=== PATIENT | female | born 1950 ===

== ENCOUNTER 2023-02-24 07:53 | Emergency (ER) | payer OTHER, SELFPAY ==
--- NOTE | ~2023-02-24 | CT_ITS ---
EXAMINATION: CT HEAD WITHOUT CONTRAST CLINICAL INFORMATION: New onset vertigo. COMPARISON: None available. TECHNIQUE: Contiguous axial imaging was performed from the skull base to vertex without intravenous administration of contrast. Coronal and sagittal reformatted images were obtained. This CT examination was performed using dose optimization techniques as appropriate, variously including the following: *Automated exposure control *Adjustment of mA and/or kV according to patient size (this includes techniques or standardized protocols for targeted exams where dose is matched to indication/reason for exam; i.e. extremities or head) *Use of iterative reconstruction technique DLP: 574 mGy-cm FINDINGS: The cortical sulci are normal. The lateral ventricles are symmetrical. The third and fourth ventricles are in their normal midline position. The basilar and prepontine cisterns are unremarkable. There is no acute intra or extracerebral abnormality. There is no mass effect or midline shift. Sections through the bony calvarium are unremarkable. The paranasal sinuses show mild to moderate mucosal thickening most pronounced in the bilateral ethmoid and right sphenoid sinuses. The bony orbits and orbital contents are unremarkable. CT/CT head/brain wo IV con IMPRESSION: 1. No acute intracranial pathology. 2. Mild to moderate paranasal sinus inflammatory changes.
--- NOTE | 2023-02-24 08:00 | ED.DIZZY ---
HPI - Dizziness General Chief Complaint: Dizziness Stated Complaint: DIZZY NAUSEA VOMITING Time Seen by Provider: 02/24/23 07:59 Source: patient and EMS Mode of arrival: EMS Limitations: no limitations History of Present Illness HPI Narrative: 72 year old female wit history of vertigo presenting today via EMS with dizziness, N/V upon waking up this morning. Patient states she woke up to use the restroom this morning and was able to fall back asleep, however upon turning onto her right side she suddenly became dizzy- describes it as a room spinning sensation. Related Data Previous Rx's Medication Instructions Recorded albuterol sulfate 90 mcg/actuation 2 inh PO Q4H PRN shortness of 04/10/22 aerosol inhaler breath or wheezing 90 days #25.5 grams fluticasone propionate 110 2 inh inhalation BID 90 days #36 04/10/22 mcg/actuation HFA aerosol inhaler grams (Flovent HFA) hydrochlorothiazide 12.5 mg tablet 12.5 mg PO DAILY 90 days #90 tabs 04/10/22 fluticasone propionate 50 2 spray intranasal DAILY #16 grams 02/24/23 mcg/actuation nasal spray,suspension (Flonase Allergy Relief) fluticasone propionate 50 2 spray intranasal DAILY #16 grams 02/24/23 mcg/actuation nasal spray,suspension (Flonase Allergy Relief) meclizine 25 mg tablet 25 mg PO TID #20 tabs 02/24/23 meclizine 25 mg tablet 25 mg PO TID #20 tabs 02/24/23 Allergies Allergy/AdvReac Type Severity Reaction Status Date / Time acetaminophen [Percocet] Allergy Intermediate rash Verified 02/24/23 08:10 oxycodone [Percocet] Allergy Intermediate rash Verified 02/24/23 08:10 Review of Systems Review of Systems: Yes all other systems are reviewed and are negative Neurologic: Denies Sensory deficit (Neuro) [facility] Past Medical History Surgical History History of section Melanoma of lower back Family History Family History Father Myocardial infarction CVD (cardiovascular disease) Mother Cancer of pancreas Brother Myocardial infarction Sister No problems noted. Son No problems noted. Daughter No problems noted. Social History Social History Alcohol intake: never Patient Tobacco Use Status: Never used Tobacco Smoked in Last 30 Days: No e-Cigarette/Vaping Use: Never Used Second Hand Smoke Exposure: No Use of substances other than those prescribed or required for medical reasons: No Advance Directives: No Advance Directives Information Provided: Yes service: No Current occupational status: employed Current occupational exposures/hazards: No Cognitive needs: No Hearing needs: No Vision needs: No Physical Exam Vital Signs: Vital Signs: Last Vital Signs Temp 97.8 F 02/24/23 09:55 Pulse 89 02/24/23 12:00 Resp 20 02/24/23 12:00 BP 126/64 02/24/23 12:00 Pulse Ox 96 02/24/23 12:00 O2 Del Method Room Air 02/24/23 12:00 BMI result Body Mass Index 24.6 Const: Other: diaphoretic, lying in the bed with her eyes closed. Nutritional Appearance: average body habitus Orientation/consciousness: oriented to person and patient oriented x3 Limitations: no limitations HEENT: Head: Yes normal to inspection Ears: external ears normal, TM normal on the right and left TM abnormal (effusion) General nose exam: Normal external nose present Mouth: Normal oral and palatal mucosa present and oropharynx normal Throat: Yes posterior oropharynx normal Eyes: Other: + lateral nystagmus to the left, + rotatory nystagmus Alignment and Position: alignment normal Conjunctivae: conjunctivae normal Sclerae: sclerae normal Corneas: corneas normal Pupils: Equal, round and reactive pupils present Neck: Other: supple Neck: Yes normal visual inspection Chest: Chest palpation & inspection: normal inspection of the chest Resp: Auscultation: clear to auscultation bilaterally Cardio: Jugular venous distension: no JVD Rate: regular rate Rhythm: regular rhythm Heart sounds: S1 normal heart sound present and S2 normal heart sound present GI: Inspection: Yes normal to inspection Palpation (GI): Soft to palpation, nontender and No hepatosplenomegaly present Auscultation: normal bowel sounds : General: Yes no CVA tenderness Back/Spine/Pelvis: Back: no CVA tenderness Skin: General skin exam: no rashes or lesions noted Neuro: General: oriented to person and patient oriented x3 Cranial nerves: Yes CN's II-XII intact bilaterally and Yes Equal, round and reactive pupils present Motor exam (neuro): 5/5 motor strength present throughout Sensory Exam: No Sensory deficit (Neuro) Extrem: General: Yes normal to inspection Psych: Appearance: grossly normal Course Reevaluation(s) Reevaluation #1: 72 yo female presents with symptoms consistent with BPPV. Head ct negative. Symptoms improved with zofran and meclazine. Will d/c on meclazine. Time: 13:11 Medications Administered Discontinued Medications Generic Name Dose Route Start Last Admin Trade Name Freq PRN Reason Stop Dose Admin Meclizine HCl 50 mg 02/24/23 08:12 02/24/23 08:22 Meclizine Hcl 25 Mg Tablet PO 02/24/23 08:13 50 mg ONCE ONE Administration Ondansetron HCl 4 mg 02/24/23 08:14 02/24/23 08:22 Ondansetron Hcl 4 Mg/2 Ml Vial IVPUSH 02/24/23 08:15 4 mg ONCE ONE Administration Medical Decision Making Differential Diagnosis Differential Diagnoses: The differential diagnosis associated with the presentation includes Lab Data 02/24/23 08:49 02/24/23 08:49 Labs: Lab Results 02/24/23 02/24/23 Range/Units 08:49 08:49 WBC 11.6 H (4.8-10.8) X10*3/uL RBC 2.64 L (4.20-5.50) X10*6/uL Hgb 8.4 L (12.0-16.0) g/dl Hct 24.9 L (37.0-47.0) % MCV 94.3 (80.0-98.0) fL MCH 31.8 (27.0-33.0) pg MCHC 33.7 (31.0-35.0) g/dl RDW 15.2 (11.0-16.0) % Plt Count 434 H (160-400) X10*3/uL MPV 9.2 L (9.4-12.3) fL Immature Gran % (Auto) 0.6 H (0.0-0.4) % Neut % (Auto) 90.0 H (45-73) % Lymph % (Auto) 3.6 L (20-40) % [place] % (Auto) 4.2 (2-11) % Eos % (Auto) 1.4 (0-4) % Baso % (Auto) 0.2 (0-2) % Lymph # (Auto) 0.4 L (1.2-4.9) X10*3/uL [place] # (Auto) 0.5 (0.1-1.2) X10*3/uL Eos # (Auto) 0.2 (0.0-0.4) X10*3/uL Baso # (Auto) 0.0 (0.0-0.2) X10*3/uL Abs Immat Gran (auto) 0.07 H (0.00-0.03) X10*3/uL Absolute Neuts (auto) 10.4 H (2.0-8.3) x10*3/uL Absolute Nucleated RBC 0.000 (0.0-0.012) X10*3/uL Nucleated RBC % (auto) 0.0 (0.0-0.2) /100WBC Sodium 139 (135-145) mmol/L Potassium 3.8 (3.3-5.1) mmol/L Chloride 104 (96-108) mmol/L Carbon Dioxide 26 (22-29) mmol/L Anion Gap 13 (12-20) BUN 14 (9-16) mg/dL Creatinine 0.69 (0.5-1.4) mg/dL Estim Creat Clear Calc 65.1 Estimated GFR > 60 Random Glucose 150 H (60-115) mg/dL Calcium 8.8 (8.4-10.2) mg/dL Discharge Plan Discharge Clinical Impression: Benign paroxysmal positional vertigo, Sinusitis Patient Disposition: Home, Self-Care Instructions: Sinusitis (ED), Benign Paroxysmal Positional Vertigo (ED) Prescriptions: New fluticasone propionate [Flonase Allergy Relief] 50 mcg/actuation spray,suspension 2 spray intranasal DAILY Qty: 16 0RF Rx Instructions: administer into each nostril meclizine 25 mg tablet 25 mg PO TID Qty: 20 0RF meclizine 25 mg tablet 25 mg PO TID Qty: 20 0RF fluticasone propionate [Flonase Allergy Relief] 50 mcg/actuation spray,suspension 2 spray intranasal DAILY Qty: 16 0RF Rx Instructions: administer into each nostril No Action albuterol sulfate 90 mcg/actuation HFA aerosol inhaler 2 inh PO Q4H PRN (Reason: shortness of breath or wheezing) 90 Days Qty: 25.5 3RF fluticasone propionate [Flovent HFA] 110 mcg/actuation HFA aerosol inhaler 2 inh inhalation BID 90 Days Qty: 36 3RF hydrochlorothiazide 12.5 mg tablet 12.5 mg PO DAILY 90 Days Qty: 90 2RF Referrals: Aguilar Louis MD [Primary Care Provider] - 5 days Mark Ken [Physician] - 5 days Interventions: ED Discharge Assessment Last Done: 02/24/23 14:02 Discharge Date/Time: 02/24/23 14:03
[2023-02-24 08:10] VITALS: BP 156/79; BP 160/70; PULSE 70; PULSE 74; RESP 16; TEMP 36.4; O2SAT 98; BMI 24.6
[2023-02-24] MEDS: Meclizine HCl 25 MG TABLET 50 MG PO (08:22)
[2023-02-24] MEDS: ondansetron HCL 4 MG/2 ML VIAL IVPUSH (08:22)
--- NOTE | 2023-02-24 08:24 | PC.NURSE ---
patient a&ox3, pt noted to be diaphoretic and stating she is dizzy, medical office assistant applied nsr with pvcs, vss, pt medicated for dizziness and nausea, family at bedside, call rodriguez within reach, will continue to monitor.
[2023-02-24 08:29] VITALS: BP 147/72; PULSE 71
[2023-02-24 08:44] VITALS: BP 152/75; PULSE 74; RESP 14; TEMP 36.4; O2SAT 96
[2023-02-24 08:52] LABS: MANUAL DIFF FLAG NO
[2023-02-24 08:54] LABS: Basophils Percent Auto 0.2 % (0-2); Eosinophils Absolute Auto 0.2 X10*3/uL (0.0-0.4); Eosinophils Percent Auto 1.4 % (0-4); Hematocrit 24.9 % (37.0-47.0); Hemoglobin 8.4 g/dl (12.0-16.0); Imm Gran Abs Auto 0.07 X10*3/uL (0.00-0.03); Imm Gran Pct Auto 0.6 % (0.0-0.4); Lymphocytes Absolute Auto 0.4 X10*3/uL (1.2-4.9); Lymphocytes Percent Auto 3.6 % (20-40); Mean Corpuscular HGB Conc 33.7 g/dl (31.0-35.0); Mean Corpuscular Hemoglobin 31.8 pg (27.0-33.0); Mean Corpuscular Volume 94.3 fL (80.0-98.0); Mean Platelet Volume 9.2 fL (9.4-12.3); Monocytes Absolute Auto 0.5 X10*3/uL (0.1-1.2); Monocytes Percent Auto 4.2 % (2-11); Neutrophils Absolute Auto 10.4 x10*3/uL (2.0-8.3); Platelet Count 434 X10*3/uL (160-400); Red Blood Count 2.64 X10*6/uL (4.20-5.50); Red Cell Distribution Width 15.2 % (11.0-16.0); White Blood Count 11.6 X10*3/uL (4.8-10.8)
[2023-02-24 08:58] VITALS: BP 145/76; PULSE 72
[2023-02-24 09:06] LABS: Anion Gap 13 (12-20); Blood Urea Nitrogen 14 mg/dL (9-16); Calcium 8.8 mg/dL (8.4-10.2); Carbon Dioxide 26 mmol/L (22-29); Chloride 104 mmol/L (96-108); Creatinine Clr Calc Pharmacy 65.1; Estimated Glomerular Filt Rate > 60; Glucose Random 150 mg/dL (60-115); Potassium 3.8 mmol/L (3.3-5.1); Sodium 139 mmol/L (135-145)
[2023-02-24 09:55] VITALS: BP 135/68; PULSE 76; RESP 16; TEMP 36.6; O2SAT 98
--- NOTE | 2023-02-24 10:02 | PC.NURSE ---
pt resting comfortably with lights dimmed and noise minimized, vital signs stable, pt's pain reassessed but denies 0/10 pain, pt states that she still feels dizzy, call rodriguez within reach, will continue to monitor.
[2023-02-24 12:00] VITALS: BP 126/64; PULSE 89; RESP 20; O2SAT 96
--- NOTE | 2023-02-24 12:19 | PC.NURSE ---
pt resting comfortably in bed, denies pain but feels dizzy, vital signs within normal limits, call rodriguez within reach, will continue to monitor.
== END 2023-02-24 14:03 | disposition home or self-care (01) ==
PROVIDERS: Emergency Provider Emergency Medicine; PCP Family Medicine
DX: H81.13 Benign paroxysmal vertigo, bilateral (principal); J32.9 Chronic sinusitis, unspecified; R11.2 Nausea with vomiting, unspecified; Z79.899 Other long term (current) drug therapy
CPT/HCPCS: 36415; 70450; 80048; 85025; 99284; J2405

== ENCOUNTER 2023-02-27 12:01 | Outpatient (REF) | payer OTHER, SELFPAY ==
[2023-02-27 14:01] LABS: MANUAL DIFF FLAG NO
[2023-02-27 14:19] LABS: Appearance Urine Clear; Color Urine Dark Yellow; Glucose Urine UA Negative (Negative); Leukocyte Esterase Urine Small (1+) (Negative); Nitrite Urine Negative (Negative); PH 6.5 (5.0-9.0); Specific Gravity - Urine 1.025 (1.005-1.025); UMIC TRIGGER UA YES; Urine Blood Negative (Negative); Urine Ketones Trace mg/dL (Negative); Urine Protein Trace mg/dL (Neg-Trace)
[2023-02-27 14:33] LABS: Alanine Aminotransferase 12 U/L (0-31); Albumin Level 3.9 g/dL (3.5-5.0); Alkaline Phosphatase 79 U/L (39-117); Anion Gap 12 (12-20); Aspartate Amino Transferase 27 U/L (5-31); Basophils Percent Auto 0.4 % (0-2); Bilirubin Total 1.7 mg/dL (0.0-1.0); Blood Urea Nitrogen 12 mg/dL (9-16); Calcium 9.2 mg/dL (8.4-10.2); Carbon Dioxide 26 mmol/L (22-29); Chloride 100 mmol/L (96-108); Cholesterol 186 mg/dL; Eosinophils Absolute Auto 0.3 X10*3/uL (0.0-0.4); Eosinophils Percent Auto 3.3 % (0-4); Estimated Glomerular Filt Rate > 60; Glucose Fasting 97 mg/dL (60-99); HDL Cholesterol 41 mg/dL; Hematocrit 29.5 % (37.0-47.0); Hemoglobin 9.7 g/dl (12.0-16.0); Imm Gran Abs Auto 0.03 X10*3/uL (0.00-0.03); Imm Gran Pct Auto 0.4 % (0.0-0.4); LDL Cholesterol Calculated 108 mg/dl; Lymphocytes Percent Auto 12.6 % (20-40); Mean Corpuscular Hemoglobin 30.2 pg (27.0-33.0); Mean Corpuscular Volume 91.9 fL (80.0-98.0); Mean Platelet Volume 9.9 fL (9.4-12.3); Monocytes Absolute Auto 0.7 X10*3/uL (0.1-1.2); Monocytes Percent Auto 8.8 % (2-11); Neutrophils Absolute Auto 5.9 x10*3/uL (2.0-8.3); Neutrophils Percent Auto 74.5 % (45-73); Platelet Count 505 X10*3/uL (160-400); Potassium 3.8 mmol/L (3.3-5.1); Red Blood Count 3.21 X10*6/uL (4.20-5.50); Sodium 134 mmol/L (135-145); Triglycerides 185 mg/dL; White Blood Count 7.9 X10*3/uL (4.8-10.8)
[2023-02-27 14:35] LABS: Mean Corpuscular HGB Conc 32.9 g/dl (31.0-35.0)
[2023-02-27 14:38] LABS: TSH reflex Free T4 2.82 uIU/mL (0.32-4.0)
[2023-02-27 14:38] LABS: Bacteria Urine None Seen (None Seen); Hyaline Casts Urine 0-2 /LPF (0-2); Squamous Epithelial Cell Urine 0-2 /HPF (0-2); WBC Urine 0-5 /HPF (0-5)
[2023-02-27 15:06] LABS: Creatinine Urine 188.85 mg/dL; Microalbum/Creatinine Ratio Ur 7.9 ug/mg cr
== END 2023-02-27 12:02 | disposition home or self-care (01) ==
LOC: HO.WFDLDS 12:01
PROVIDERS: Visit Provider Family Medicine
DX: Z00.00 Encounter for general adult medical examination without abnormal findings (principal); I10 Essential (primary) hypertension
CPT/HCPCS: 36415; 80053; 80061; 81001; 82043; 84443; 85025

== ENCOUNTER 2023-05-01 14:50 | Outpatient (AMB) | payer OTHER, SELFPAY ==
[2023-05-01 14:53] VITALS: BP 120/63; PULSE 81; RESP 20; O2SAT 96; BMI 25.8
--- NOTE | 2023-05-01 14:53 | A.OFFPC_ITS ---
Vital Signs 05/01/23 14:53 Height 5 ft 2 in Weight 141 lb 4 oz BMI 25.8 BP 120/63 Blood Pressure Location Lt brachial Position Sitting Respiration 20 Pulse 81 Pulse Source Pulse Oximeter Pulse Oximetry (%) 96 Oxygen Delivery Method Room Air Intake Visit Reasons: Follow up on asthma Intake Note: Patient is here to follow up appointment (check up) today. Allergies acetaminophen [Percocet] Allergy (Intermediate, Verified 05/01/23 14:56) rash oxycodone [Percocet] Allergy (Intermediate, Verified 05/01/23 14:56) rash Tobacco use date assessed: 05/01/23 Fall risk assessment: No Falls in past year Last assessed Fall Risk: 05/01/23 Dental Screening Dental Screen Date: 05/01/23 Did you have a dental visit in the last 12 months?: Yes Did you have a dental problem in the last 6 months where you did not have access to dental care?: No Was dental information given to patient?: Patient has dentist HPI Follow up on asthma HPI Details 72 y/o female presents to f/u chronic conditions. Labs were drawn 02/27/23. Reviewed labs with pt. Mild anemia. Triglycerides 185. TC 186. LDL 108. HDL 41. Some RBC in urine. She continues using albuterol and flovent for her asthma. [facility] Surgical History History of section Melanoma of lower back Family History Father Myocardial infarction CVD (cardiovascular disease) Mother Cancer of pancreas Brother Myocardial infarction Sister No problems noted. Son No problems noted. Daughter No problems noted. Social History Alcohol intake: never Patient Tobacco Use Status: Never used Tobacco e-Cigarette/Vaping Use: Never Used Second Hand Smoke Exposure: No service: No Current occupational status: employed Current occupational exposures/hazards: No Cognitive needs: No Hearing needs: No Vision needs: No Questionnaire PHQ-9 Over the last 2 weeks, how often have you been bothered by any of the following problems? 1. Little interest or pleasure in doing things: not at all 2. Feeling down, depressed, or hopeless: not at all 3. Trouble falling or staying asleep, or sleeping too much: not at all 4. Feeling tired or having little energy: not at all 5. Poor appetite or overeating: not at all 6. Feeling bad about yourself - or that you are a failure or have let yourself or your family down: not at all 7. Trouble concentrating on things, such as reading the newspaper or watching television: not at all 8. Moving or speaking so slowly that other people could have noticed. Or the opposite - being so fidgety or restless that you have been moving around a lot more than usual: not at all 9. Thoughts that you would be better off or of hurting yourself in some way: not at all Total score: 0 Source: Developed by Drs. Diony Lopez, Anna Chandler, Adrien Batista and colleagues, with an educational kamini from [employer]. Thrive Questionnaire I am a: Patient What is your living situation today?: I have a steady place to live Within the past 12 months, did the food you bought not last and you didn't have the money to get more?: Never true Within the past 12 months, did you worry whether your food would run out before you got money to buy more?: Never true Do you have trouble paying for medicines?: No Do you have trouble getting transportation to medical appointments?: No Do you have trouble paying your heating and electricity bill?: No Do you have trouble taking care of your child, family member or friend?: No Do you have trouble with day-to-day activities such as bathing, preparing meals, shopping, managing finances, etc.?: No Are you currently unemployed and looking for a job?: No Are you interested in more education?: No AUDIT C Alcohol Use Questionnaire (AUDIT-C) 1. How often do you have a drink containing alcohol?: Monthly or less 2. How many drinks containing alcohol do you have on a typical day when you are drinking?: 1 or 2 3. How often do you have six or more drinks on one occasion?: Never Total Score: 1 EMERSON-7 AMB Questionnaire EMERSON-7 Feeling nervous, anxious, or on edge: 0 = Not at all Not being able to stop or control worryin = Not at all Worrying too much about different things: 0 = Not at all Trouble relaxin = Not at all Being so restless that it is hard to sit still: 0 = Not at all Becoming easily annoyed or irritable: 0 = Not at all Feeling afraid as if something awful might happen: 0 = Not at all Total EMERSON-7 score (0-4 normal; 5-9 mild; 10-14 moderate; 15-21 severe): 0 Source: Developed by Drs. Diony Lopez, Anna Chandler, Adrien Batista and colleagues, with an educational kamini from [employer]. Review of Systems Const Denies chills, Denies fatigue, Denies fever(s), Denies headache(s) and Denies weakness ENT Denies dizziness and Denies headache(s) Card Denies chest pain, Denies lightheadedness, Denies dyspnea and Denies other (Palpitations) Resp Denies cough, Denies dyspnea, Denies wheezing and Denies other ( shortness of breath) Musc Denies numbness and Denies tingling Neuro Denies dizziness, Denies headache(s), Denies numbness, Denies tingling, Denies paresthesias and Denies weakness Psych Denies anxiety and Denies depression Endo Denies fatigue Aller/Immun Denies wheezing Physical exam (Primary Care) Vital Signs: Last Vital Signs Pulse 81 05/01/23 14:53 Resp 20 05/01/23 14:53 BP 120/63 05/01/23 14:53 Pulse Ox 96 05/01/23 14:53 Oxygen Delivery Method Room Air 05/01/23 14:53 BMI result Body Mass Index 25.8 Tobacco/Smoking Status: Tobacco use Status Tobacco use date assessed 05/01/23 05/01/23 14:58 Patient Tobacco Use Status Never used Tobacco 05/01/23 14:58 e-Cigarette/Vaping Use Never Used 05/01/23 14:58 PHQ-9: PHQ-9 Score PHQ-9: Total score 0 05/01/23 15:13 Const General: no acute distress and well developed Nutritional Appearance: well nourished Orientation/consciousness: patient oriented x3 HENMT Head: Yes normocephalic and Yes atraumatic Eyes General: appearance normal, both eyes and all related structures Pupils: Equal, round and reactive pupils present EOM: EOMs intact bilaterally Resp Other: Wheezing Effort & Inspection: normal respiratory effort Cardio Rate: regular rate Rhythm: regular rhythm Heart sounds: S1 normal heart sound present, S2 normal heart sound present, no gallops, no murmurs and no rubs Neuro General: patient oriented x3 and gait normal Cranial nerves: Yes Equal, round and reactive pupils present Psych Affect: normal affect Assessment and Plan Assessment & Plan (1) Mild anemia: Code(s): D64.9 - Anemia, unspecified Plan: Patient had been sick around the time of lab draw Will recheck this (2) Hematuria: Code(s): R31.9 - Hematuria, unspecified Plan: As above, rechecking labs as she had been sick around the time labs were taken (3) Moderate persistent asthma: Code(s): J45.40 - Moderate persistent asthma, uncomplicated Plan: Patient has mild wheeze bilaterally Encouraged her to use her Flovent twice a day And use albuterol as needed Refilled medications (4) Immunization counseling: Code(s): Z71.85 - Encounter for immunization safety counseling Plan: Recommended flu shot and COVID shots this month Medications: Changed 2 From fluticasone propionate 50 mcg/actuation (Flonase Allergy Relief) administer into each nostril 2 sprays intranasal DAILY 16 grams 0RF To fluticasone propionate 50 mcg/actuation (Flonase Allergy Relief) administer into each nostril 2 sprays intranasal DAILY 16 grams 3RF 30 days Refilled fluticasone propionate 110 mcg/actuation (Flovent HFA) 2 inhalations inhalation BID 36 grams 3RF 90 days albuterol sulfate 90 mcg/actuation 2 inhalations PO Q4H PRN 25.5 grams 3RF shortness of breath or wheezing 90 days hydrochlorothiazide 12.5 mg PO DAILY 90 tabs 2RF 90 days Discontinued fluticasone propionate 50 mcg/actuation (Flonase Allergy Relief) administer into each nostril Discontinued Reason: Duplicate 2 sprays intranasal DAILY 16 grams 0RF Coding Level of Care Code Est Pt Level 4 (82510) Diagnoses Mild anemia D64.9 Hematuria R31.9 Moderate persistent asthma J45.40 Immunization counseling Z71.85
== END 2023-05-01 15:43 | disposition home or self-care (01) ==
PROVIDERS: PCP Family Medicine; Visit Provider Family Medicine
DX: D64.9 Anemia, unspecified (principal); R31.9 Hematuria, unspecified; J45.40 Moderate persistent asthma, uncomplicated; Z71.85 Encounter for immunization safety counseling
CPT/HCPCS: 99214

== ENCOUNTER 2024-08-25 09:14 | Outpatient (REF) | payer OTHER, SELFPAY ==
[2024-08-25 09:32] LABS: MANUAL DIFF FLAG NO
[2024-08-25 10:23] LABS: Alanine Aminotransferase 23 U/L (0-31); Alkaline Phosphatase 84 U/L (39-117); Anion Gap 10 (12-20); Aspartate Amino Transferase 64 U/L (5-31); Bilirubin Total 2.2 mg/dL (0.0-1.0); Blood Urea Nitrogen 18 mg/dL (9-16); Calcium 8.4 mg/dL (8.4-10.2); Carbon Dioxide 28 mmol/L (22-29); Chloride 101 mmol/L (96-108); Cholesterol 153 mg/dL (<200); Estimated Glomerular Filt Rate > 60; Glucose Fasting 95 mg/dL (60-99); HDL Cholesterol 41 mg/dL (>40); LDL Cholesterol Calculated 88 mg/dL (<100); Potassium 5.1 mmol/L (3.3-5.1); Sodium 134 mmol/L (135-145); Total Protein 7.2 g/dL (6.5-8.0); Triglycerides 121 mg/dL (<150)
[2024-08-25 10:28] LABS: Basophils Percent Auto 0.5 % (0-2); Eosinophils Absolute Auto 0.6 X10*3/uL (0.0-0.4); Eosinophils Percent Auto 10.2 % (0-4); Hematocrit 23.6 % (37.0-47.0); Hemoglobin 8.1 g/dl (12.0-16.0); Imm Gran Abs Auto 0.06 X10*3/uL (0.00-0.03); Lymphocytes Absolute Auto 0.7 X10*3/uL (1.2-4.9); Lymphocytes Percent Auto 10.7 % (20-40); Mean Corpuscular Hemoglobin 33.1 pg (27.0-33.0); Mean Corpuscular Volume 96.3 fL (80.0-98.0); Mean Platelet Volume 9.2 fL (9.4-12.3); Monocytes Absolute Auto 0.3 X10*3/uL (0.1-1.2); Monocytes Percent Auto 5.1 % (2-11); Neutrophils Absolute Auto 4.4 x10*3/uL (2.0-8.3); Neutrophils Percent Auto 72.5 % (45-73); Platelet Count 513 X10*3/uL (160-400); Red Blood Count 2.45 X10*6/uL (4.20-5.50); Red Cell Distribution Width 17.3 % (11.0-16.0); White Blood Count 6.1 X10*3/uL (4.8-10.8)
[2024-08-25 10:30] LABS: Mean Corpuscular HGB Conc 34.3 g/dl (31.0-35.0)
== END 2024-08-25 09:15 | disposition home or self-care (01) ==
LOC: HO.LAB 09:14
PROVIDERS: PCP Internal Medicine; Visit Provider Internal Medicine
DX: Z00.00 Encounter for general adult medical examination without abnormal findings (principal); R53.83 Other fatigue; E78.5 Hyperlipidemia, unspecified
CPT/HCPCS: 36415; 80053; 80061; 85025

== ENCOUNTER 2024-08-26 11:55 | Outpatient (REF) | payer OTHER, SELFPAY ==
[2024-08-26 12:29] LABS: Iron 174 mcg/dL (30-160); Percent Iron Saturation 58 % (15-50); Total Iron Binding Capacity 298 mcg/dL (228-428); Unsaturated Iron Binding 124 ug/dL
[2024-08-26 12:43] LABS: Ferritin 129 ng/mL (10-250)
[2024-08-26 13:00] LABS: Folate > 20.0 ng/mL (> or = 4.0); Vitamin B12 1522 pg/mL (200-900)
== END 2024-08-26 11:56 | disposition home or self-care (01) ==
LOC: HO.LAB 11:55
PROVIDERS: PCP Internal Medicine; Visit Provider Internal Medicine
DX: R53.83 Other fatigue (principal); D64.9 Anemia, unspecified
CPT/HCPCS: 36415; 82607; 82728; 82746; 83540